=== PATIENT | male | born 2005 | race Hispanic/Latino ===

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

== ENCOUNTER 2025-02-09 13:02 | Emergency (ER) | payer OTHER, SELFPAY ==
[2025-02-09] MEDS ORDERED: Lidocaine 1% w/Epinephrine 1:100K 20 ML VIAL ONE (13:16)
[2025-02-09] MEDS ORDERED: Bacitracin 1 PK ONE (13:41)
== END 2025-02-09 13:50 | disposition home or self-care (01) ==
LOC: NAV ERS 13:02
DX: S51.812A Laceration without foreign body of left forearm, initial encounter (principal); W20.8XXA Other cause of strike by thrown, projected or falling object, initial encounter
CPT/HCPCS: 12001; 99282

== ENCOUNTER 2025-02-19 12:53 | Emergency (ER) | payer SELFPAY | END 2025-02-19 13:24 | disposition home or self-care (01) | LOC: NAV ERS 12:53 | DX: S51.012D Laceration without foreign body of left elbow, subsequent encounter (principal); X58.XXXD Exposure to other specified factors, subsequent encounter ==